=== PATIENT | male | born 1980 | race Caucasian/White ===

== ENCOUNTER → 2024-07-22 13:01 | Outpatient (BNVA) | payer OTHER, SELFPAY | PROVIDERS: PCP Internal Medicine; Visit Provider Physician Assistant Medical | DX: S93.491A Sprain of other ligament of right ankle, initial encounter (principal); X50.1XXA Overexertion from prolonged static or awkward postures, initial encounter | CPT/HCPCS: 73610; 99202 ==

== ENCOUNTER → 2024-08-07 12:07 | Outpatient (BNVA) | payer OTHER, SELFPAY | PROVIDERS: PCP Internal Medicine; Visit Provider Physician Assistant Medical | DX: S93.491D Sprain of other ligament of right ankle, subsequent encounter (principal); X50.1XXD Overexertion from prolonged static or awkward postures, subsequent encounter; Z02.79 Encounter for issue of other medical certificate | CPT/HCPCS: 99213 ==

== ENCOUNTER 2024-09-28 11:16 | Emergency (ER) | payer BC, SELFPAY ==
--- NOTE | ~2024-09-28 | XR_ITS ---
CLINICAL HISTORY: back pain 3 views lumbar spine Comparison: None provided Findings: Normal vertebral body alignment. No acute fractures or dislocation. Minimal disc space narrowing at L5-S1. Mild scattered atherosclerotic disease of the aorta. IMPRESSION: No acute findings. This document has been electronically signed by: Mohsen Donohue MD on 09/28/2024 12:50:47
--- NOTE | ~2024-09-28 | CT_ITS ---
CLINICAL HISTORY: left flank pain Exam: CT Abdomen and Pelvis Without IV Contrast Comparison: None Findings: The liver density is homogeneous. The gallbladder is normal in size and contains small gallstones. The spleen is normal in size. No pancreatic ductal dilatation. Proximal left kidney collecting system hydronephrosis is present due to 9 mm partially obstructing calculus in the proximal 3rd of the left ureter. An 11 mm nonobstructing calculus is present in a middle zone calyx of the left kidney. Right kidney collecting system is unremarkable. Normal bowel caliber. The appendix is normal. No free fluid/free air. The abdominal aorta caliber is normal. Bladder outline is smooth. Left hip arthroplasty is in good alignment. Right hip joint is unremarkable. Impression: There is a 9 mm partially obstructing calculus in the proximal 3rd of the left ureter with ureteritis and periureteral inflammatory fat stranding. This document has been electronically signed by: Darinel Elias MD on 09/28/2024 14:35:44
[2024-09-28 11:43] VITALS: BP 163/116; PULSE 98; RESP 18; TEMP 36.6; O2SAT 97; BMI 33.5
--- NOTE | 2024-09-28 11:49 | ECG_ITS ---
Test Reason : BACK PAIN Blood Pressure : */* mmHG Vent. Rate : 93 BPM Atrial Rate : 93 BPM P-R Int : 148 ms QRS Dur : 88 ms QT Int : 324 ms P-R-T Axes : 16 31 47 degrees QTcB Int : 402 ms Normal sinus rhythm Normal ECG No previous ECGs available Referred By: Suraj Kilgore Electronically Signed By: EDIE CASTELLANO
--- NOTE | 2024-09-28 11:52 | ED_ITS ---
HPI - General Adult General Chief complaint: Back Pain/Injury Stated complaint: Back Pain Time Seen by Provider: 09/28/24 12:19 History of Present Illness HPI narrative: 43-year-old male presents today with having mid back pain radiating to the left side. Patient claims that the pain kind of wraps around to the left lower quadrant. Also goes down the legs on both sides a little more on the left. There is no bowel urinary incontinence is no focal weakness is no history of kidney stone he does have a history of diabetes, hypertension, high cholesterol, smoking. Patient denies any focal weakness. Denies any change in bowel movement. Ambulates without any difficulties. Pain [place] Related Data Previous Rx's ?Medication ?Instructions ?Recorded ibuprofen 800 mg tablet 800 mg PO TID PRN pain #30 t abs 07/22/24 ibuprofen 400 mg tablet 400 mg PO Q6H PRN pain #20 t abs 09/28/24 ondansetron 4 mg disintegrating 4 mg PO TID PRN nausea and 09/28/24 tablet vomiting 5 days #10 tabs oxycodone 5 mg tablet 5 mg PO Q8H PRN pain #7 tabs 09/28/24 tamsulosin 0.4 mg capsule (Flomax) 0.4 mg PO DAILY #7 caps 09/28/24 Allergies Allergy/AdvReac Type Severity Reaction Status Date / Time No Known Allergies Allergy Verified 09/28/24 11:46 Review of Systems 2 Review of Systems: Positive pain to the left lower back area radiating to the front Yes all other systems are reviewed and are negative [facility] Past Medical History Attestation statement: The following information was validated with the patient. Social History Social History Advance Directives: No Advance Directives Information Provided: Yes Do you have a plan to hurt others: No Plan Physical Exam ED Vital Signs: Vital Signs - 24 hr 09/28/24 11:43 09/28/24 13:31 Temperature 97.8 F 98.6 F Pulse Rate 98 80 Respiratory Rate 18 18 Blood Pressure 163/116 H 136/79 Pulse Oximetry 97 94 Oxygen Delivery Method Room Air Room Air BMI result Body Mass Index 33.5 Appearance: Alert. Oriented X3. No acute distress. Eyes: Pupils equal, round and reactive to light. ENT: Pharynx normal. Neck: Normal inspection. Neck supple. No lymph nodes noted. No crepitus CVS: Normal heart rate and rhythm. Pulses normal. Normal S1 and S2 Respiratory: No respiratory distress. Breath sounds normal. No Wheezing. No rales Abdomen: Soft and nontender. No rigidity. No distention. good BS x4 Skin: Skin warm and dry. Normal skin color. Normal skin turgor. Extremities: No lower extremity edema. Neurovascular intact to all extremities. No Lacerations. No Rash Neuro: Oriented X 3. No motor deficit. No sensory deficit. Moving all extermities. No slurred speech Course Course Course Narrative: RME: 43 yold male with pmh of DM, and HTN presents to ED for left sided back pain radiating up to both arms with tingling, with pain radiating down groin. Positive for left lumbar spine flank tenderness on palpation. Negative for signs of any neuro deficits NIH score is 0. Labs UA EKG to ordered. History patient states pain and arm and patient is diabetic and hypertensive we will do at least 1 cardiac enzyme trending shows no cardiac issue. You a lumbar spine x-ray ordered. Patient denies any chest pain or shortness of breath. Medications Administered Discontinued Medications Generic Name Dose Route Start Last Admin Trade Name Freq PRN Reason Stop Dose Admin Ketorolac Tromethamine 15 mg 09/28/24 12:36 09/28/24 12:55 Ketorolac Tromethamine 15 Mg/Ml Vial IVPUSH 09/28/24 12:37 15 mg ONCE ONE Administration Medical Decision Making Medical Decision Making [facility] Narrative: patient 43 years old complaining of pain in the left flank area. Wrapping around to the left lower quadrant also going to the back. Has a history of sciatica. We did a CT of the abdomen pelvis which was positive for having a left-sided ureteral stone. Likely the cause of patient's pain. Patient's kidney function is normal. He is currently well-appearing no acute distress. The urine is negative for infection will discharge patient home close follow-up with Urology on an outpatient basis. Differential Diagnosis Differential Diagnoses: The differential diagnosis associated with the presentation includes Kidney stone, obstruction, diverticulitis, sciatica Admission/Observation Consideration of admission/observation: Escalation of care including admission/observation considered Lab Data [facility] Lab Attestation statement: I reviewed the patient's lab results. 09/28/24 12:08 09/28/24 12:08 Labs: Lab Results 09/28/24 09/28/24 Range/Units 12:08 14:51 WBC 7.1 (4.8-10.8) X10*3/uL RBC 4.71 (4.60-5.80) X10*6/uL Hgb 13.9 L (14.0-18.0) g/dl Hct 40.7 L (42.0-52.0) % MCV 86.4 (80.0-98.0) fL MCH 29.5 (27.0-33.0) pg MCHC 34.2 (31.0-36.0) g/dl RDW 12.9 (11.0-16.0) % Plt Count 239 (160-400) X10*3/uL MPV 9.5 (9.4-12.4) fL Immature Gran % (Auto) 0.4 (0.0-0.4) % Neut % (Auto) 70.6 (45-73) % Lymph % (Auto) 19.0 L (20-40) % [place] % (Auto) 7.9 (2-11) % Eos % (Auto) 1.8 (0-4) % Baso % (Auto) 0.3 (0-2) % Lymph # (Auto) 1.4 (1.2-4.9) X10*3/uL [place] # (Auto) 0.6 (0.1-1.2) X10*3/uL Eos # (Auto) 0.1 (0.0-0.4) X10*3/uL Baso # (Auto) 0.0 (0.0-0.2) X10*3/uL Abs Immat Gran (auto) 0.03 (0.00-0.03) X10*3/uL Absolute Neuts (auto) 5.0 (2.0-8.3) x10*3/uL Absolute Nucleated RBC 0.000 (0.0-0.012) X10*3/uL Nucleated RBC % (auto) 0.0 (0.0-0.2) /100WBC Sodium 142 (135-145) mmol/L Potassium 4.1 (3.3-5.1) mmol/L Chloride 105 (96-108) mmol/L Carbon Dioxide 27 (22-29) mmol/L Anion Gap 14 (12-20) BUN 13 (9-16) mg/dL Creatinine 0.88 (0.5-1.4) mg/dL Estim Creat Clear Calc 135.8 Estimated GFR > 60 Random Glucose 174 H (60-115) mg/dL Calcium 9.5 (8.4-10.2) mg/dL Total Bilirubin 0.2 (0.0-1.0) mg/dL AST 19 (5-37) U/L ALT 23 (0-40) U/L Alkaline Phosphatase 84 (39-117) U/L Troponin I High Sens < 2.7 (<3.5-35.0) ng/L Total Protein 6.6 (6.5-8.0) g/dL Albumin 4.2 (3.5-5.0) g/dL Urine Color Yellow Urine Appearance Clear Urine pH 8.5 (5.0-9.0) Ur Specific [place] 1.020 (1.005-1.025) Urine Protein Negative (Neg-Trace) mg/dL Urine Glucose (UA) Negative (Negative) mg/dL Urine Ketones Negative (Negative) mg/dL Urine Blood Moderate (2+) H (Negative) Urine Nitrite Negative (Negative) Ur Leukocyte Esterase Trace H (Negative) Urine RBC >20 H (0-2) /HPF Urine WBC 0-5 (0-5) /HPF Ur Squamous Epith Cells 0-2 (0-2) /HPF Urine Bacteria None Seen (None Seen) Hyaline Casts 0-2 (0-2) /LPF Independent Interpretation I performed an independent interpretation of an: CT Scan ( positive left-sided hydro positive left ureteral stone) Radiology Impression Discussion of test interpretation with radiology: I have reviewed the radiologist's reading. Social Determinants Patient?s care significantly limited by Social Determinants of Health including: Problems related to primary support group Discharge Plan Discharge Clinical Impression: Renal colic Patient Disposition: Home, Self-Care Instructions: Renal Colic (ED) Prescriptions: New tamsulosin [Flomax] 0.4 mg capsule 0.4 mg PO DAILY Qty: 7 0RF ibuprofen 400 mg tablet 400 mg PO Q6H PRN (Reason: pain) Qty: 20 0RF ondansetron 4 mg tablet,disintegrating 4 mg PO TID PRN (Reason: nausea and vomiting) 5 Days Qty: 10 0RF oxycodone 5 mg tablet 5 mg PO Q8H PRN (Reason: pain) Qty: 7 0RF Rx Instructions: Partial Fill upon patient request. No Action ibuprofen 800 mg tablet 800 mg PO TID PRN (Reason: pain) Qty: 30 0RF Referrals: Matthew Greenberg MD [Physician, Urology] - 10/01/24 Print Language: Libyan
[2024-09-28 12:12] LABS: MANUAL DIFF FLAG NO
[2024-09-28 12:21] LABS: Basophils Percent Auto 0.3 % (0-2); Eosinophils Absolute Auto 0.1 X10*3/uL (0.0-0.4); Eosinophils Percent Auto 1.8 % (0-4); Hematocrit 40.7 % (42.0-52.0); Hemoglobin 13.9 g/dl (14.0-18.0); Imm Gran Abs Auto 0.03 X10*3/uL (0.00-0.03); Imm Gran Pct Auto 0.4 % (0.0-0.4); Lymphocytes Absolute Auto 1.4 X10*3/uL (1.2-4.9); Mean Corpuscular HGB Conc 34.2 g/dl (31.0-36.0); Mean Corpuscular Hemoglobin 29.5 pg (27.0-33.0); Mean Corpuscular Volume 86.4 fL (80.0-98.0); Mean Platelet Volume 9.5 fL (9.4-12.4); Monocytes Absolute Auto 0.6 X10*3/uL (0.1-1.2); Monocytes Percent Auto 7.9 % (2-11); Neutrophils Percent Auto 70.6 % (45-73); Platelet Count 239 X10*3/uL (160-400); Red Blood Count 4.71 X10*6/uL (4.60-5.80); Red Cell Distribution Width 12.9 % (11.0-16.0); White Blood Count 7.1 X10*3/uL (4.8-10.8)
[2024-09-28 12:28] LABS: Alanine Aminotransferase 23 U/L (0-40); Albumin Level 4.2 g/dL (3.5-5.0); Alkaline Phosphatase 84 U/L (39-117); Anion Gap 14 (12-20); Aspartate Amino Transferase 19 U/L (5-37); Bilirubin Total 0.2 mg/dL (0.0-1.0); Blood Urea Nitrogen 13 mg/dL (9-16); Calcium 9.5 mg/dL (8.4-10.2); Carbon Dioxide 27 mmol/L (22-29); Chloride 105 mmol/L (96-108); Creatinine Clr Calc Pharmacy 135.8; Estimated Glomerular Filt Rate > 60; Glucose Random 174 mg/dL (60-115); Potassium 4.1 mmol/L (3.3-5.1); Sodium 142 mmol/L (135-145); Total Protein 6.6 g/dL (6.5-8.0)
[2024-09-28] MEDS: Ketorolac Tromethamine 15 MG/ML VIAL IVPUSH (12:55)
[2024-09-28 13:03] LABS: Troponin-I High Sensitivity < 2.7 ng/L (<3.5-35.0)
[2024-09-28 13:31] VITALS: BP 136/79; PULSE 80; RESP 18; TEMP 37; O2SAT 94
[2024-09-28 14:58] LABS: Appearance Urine Clear; Color Urine Yellow; Glucose Urine UA Negative (Negative); Leukocyte Esterase Urine Trace (Negative); Nitrite Urine Negative (Negative); PH 8.5 (5.0-9.0); UMIC TRIGGER UACC YES; Urine Blood Moderate (2+) (Negative); Urine Ketones Negative (Negative); Urine Protein Negative (Neg-Trace)
[2024-09-28 15:00] LABS: Bacteria Urine None Seen (None Seen); Hyaline Casts Urine 0-2 /LPF (0-2); RBC Urine >20 /HPF (0-2); Squamous Epithelial Cell Urine 0-2 /HPF (0-2); WBC Urine 0-5 /HPF (0-5)
[2024-09-28 16:40] VITALS: BP 143/89; PULSE 61; RESP 18; TEMP 36.6; O2SAT 98
[2024-09-28 16:55] VITALS: BP 143/89; PULSE 61; RESP 18; TEMP 36.6; O2SAT 98
== END 2024-09-28 16:56 | disposition home or self-care (01) ==
PROVIDERS: Physician Assistant; Emergency Provider Emergency Medicine Emergency Medical Services
DX: N23 Unspecified renal colic (principal); M54.50 Low back pain, unspecified; Z79.899 Other long term (current) drug therapy
CPT/HCPCS: 36415; 72100; 74176; 80053; 81001; 84484; 85025; 93005; 96374; 99284; J1885

== ENCOUNTER → 2024-09-28 11:49 | Outpatient (BNV) | payer BC, SELFPAY | PROVIDERS: Emergency Provider Emergency Medicine Emergency Medical Services; Visit Provider Internal Medicine | DX: M54.6 Pain in thoracic spine (principal) | CPT/HCPCS: 93010 ==

== ENCOUNTER → 2024-09-28 11:57 | Outpatient (BNV) | payer BC, SELFPAY | PROVIDERS: Emergency Provider Emergency Medicine Emergency Medical Services; Visit Provider Radiology Vascular & Interventional Radiology | DX: N20.1 Calculus of ureter (principal); M54.50 Low back pain, unspecified | CPT/HCPCS: 72100; 74176 ==